=== PATIENT | male | born 1950 ===

== ENCOUNTER 2021-07-04 11:41 | Inpatient (IN) ==
[2021-07-04 13:18] LABS: ABS Lymphocytes 0.8 10^3/ul (1.0-4.8); ABS Monocytes 0.5 10^3/ul (0-0.8); ABS Neutrophils 5.5 10^3/ul (1.5-7.7); Eosinophil % 0.1 %; Hematocrit 41 % (42-52); Hemoglobin 14.1 g/dL (14.0-18.0); Lymphocyte % 11.1 %; Mean Corpuscular HGB Conc 35 g/dL (31-36); Mean Corpuscular Hemoglobin 29 pg (27-31); Mean Corpuscular Volume 84 fL (80-94); Mean Platelet Volume 9.4 fL (7.4-10.4); Platelet Count 206 10^3/uL (150-450); Red Blood Count 4.84 10^6 /uL (4.18-5.48); Red Cell Distribution Width 14 % (10-15); White Blood Count 6.8 10^3/uL (3.5-10.8)
[2021-07-04 13:38] LABS: Albumin 4.2 g/dL (3.2-5.2); Albumin/Globulin Ratio 1.5 (1-3); Calcium 9.4 mg/dL (8.6-10.3); Globulin 2.8 g/dL (2-4); Potassium 3.8 mmol/L (3.5-5.0); Total Bilirubin 0.4 mg/dL (0.2-1.0); eGFR CKD-EPI 51.4 (>60)
[2021-07-04] MEDS ORDERED: Lactated Ringers 1000 ml BAG 1,000 ML IV ONE (13:43)
[2021-07-04 13:48] LABS: Troponin I 0.01 ng/mL (<0.03)
[2021-07-04 13:48] LABS: Rapid COVID-19 Molecular Detected (Undetected)
[2021-07-04 16:41] LABS: Urine Appearance Clear; Urine Bilirubin Negative (Negative); Urine Blood Negative (Negative); Urine Color Yellow; Urine Glucose Negative (Negative); Urine Ketones Negative (Negative); Urine Nitrite Negative (Negative); Urine Protein 2+(100 mg/dL) (Negative); Urine Specific Gravity 1.016 (1.002-1.030); Urine Urobilinogen Negative (Negative)
[2021-07-04 16:46] LABS: Urine Bacteria Absent (Absent); Urine Red Blood Cell Trace(0-2/hpf) (Absent); Urine White Blood Cell Trace(0-5/hpf) (Absent)
[2021-07-04] MEDS ORDERED: Albuterol HFA INHALER 8 gm MDI INH PRN (17:43)
[2021-07-04] MEDS: Enoxaparin 40 MG/0.4 ML SYR SUBCUT SCH (17:51)
[2021-07-04] MEDS ORDERED: Remdesivir 100 mg Vial 200 MG in NS 0.9% 250 ml 210 ML IV ONE (17:59)
[2021-07-04] MEDS ORDERED: Dextrose 50% Syringe 50 ml 25 GM/50 ML SYRINGE IV PUSH PRN (18:01)
[2021-07-04] MEDS ORDERED: Senna TAB 8.6 mg TAB PO PRN (18:48)
[2021-07-04 19:38] LABS: Magnesium 1.8 mg/dL (1.9-2.7)
[2021-07-04] MEDS ORDERED: Lactated Ringers 1000 ml BAG 1,000 ML IV SCH (20:00)
[2021-07-04] MEDS: buPROPion SR 200 mg TAB.SR PO SCH (20:53)
[2021-07-04 21:26] LABS: INR 1.26 (0.86-1.15)
[2021-07-04 22:00] LABS: TSH Ultra Thyroid Stim Horm 1.42 mcIU/mL (0.34-5.60)
[2021-07-05 05:28] LABS: Hematocrit 37 % (42-52); Hemoglobin 12.7 g/dL (14.0-18.0); Mean Corpuscular HGB Conc 35 g/dL (31-36); Mean Corpuscular Hemoglobin 29 pg (27-31); Mean Corpuscular Volume 84 fL (80-94); Mean Platelet Volume 9.4 fL (7.4-10.4); Platelet Count 164 10^3/uL (150-450); Red Blood Count 4.35 10^6 /uL (4.18-5.48); Red Cell Distribution Width 14 % (10-15); White Blood Count 4.8 10^3/uL (3.5-10.8)
[2021-07-05 05:35] LABS: INR 1.25 (0.86-1.15)
[2021-07-05 05:46] LABS: Albumin 3.8 g/dL (3.2-5.2); Albumin/Globulin Ratio 1.5 (1-3); Calcium 8.5 mg/dL (8.6-10.3); Globulin 2.5 g/dL (2-4); Potassium 3.7 mmol/L (3.5-5.0); Total Bilirubin 0.4 mg/dL (0.2-1.0); Total Protein 6.3 g/dL (6.4-8.9)
[2021-07-05 07:51] LABS: Magnesium 1.7 mg/dL (1.9-2.7)
[2021-07-05] MEDS: Mometasone/Formoter 200/5 MDI INH SCH (08:18)
[2021-07-05] MEDS: Polyethylene Glycol 3350 17 GM PACKET PO PRN ×2 (08:39→13:24)
[2021-07-05] MEDS: Aspirin EC 81 mg TAB.EC (enteric coated) PO SCH (08:40)
[2021-07-05] MEDS: buPROPion SR 200 mg TAB.SR PO SCH ×2 (08:40→22:11)
[2021-07-05] MEDS ORDERED: Magnesium Sulf 4 GM/100 ML IV 4,000 MG/100 ML BAG IVPB ONE (16:28)
[2021-07-05] MEDS: Enoxaparin 40 MG/0.4 ML SYR SUBCUT SCH (16:54)
[2021-07-05] MEDS: Remdesivir 100 mg Vial 100 MG in NS 0.9% 250 ml 230 ML IV SCH (21:56)
[2021-07-06 07:00] LABS: Hematocrit 37 % (42-52); Hemoglobin 12.9 g/dL (14.0-18.0); Mean Corpuscular HGB Conc 35 g/dL (31-36); Mean Corpuscular Hemoglobin 30 pg (27-31); Mean Corpuscular Volume 84 fL (80-94); Mean Platelet Volume 9.5 fL (7.4-10.4); Platelet Count 180 10^3/uL (150-450); Red Blood Count 4.38 10^6 /uL (4.18-5.48); Red Cell Distribution Width 14 % (10-15); White Blood Count 3.4 10^3/uL (3.5-10.8)
[2021-07-06 07:17] LABS: Albumin 3.5 g/dL (3.2-5.2); Albumin/Globulin Ratio 1.4 (1-3); Calcium 8.5 mg/dL (8.6-10.3); Globulin 2.5 g/dL (2-4); Magnesium 2.5 mg/dL (1.9-2.7); Potassium 4.4 mmol/L (3.5-5.0); Total Bilirubin 0.3 mg/dL (0.2-1.0); eGFR CKD-EPI 67.1 (>60)
[2021-07-06 07:19] LABS: INR 1.24 (0.86-1.15)
[2021-07-06] MEDS: Mometasone/Formoter 200/5 MDI INH SCH (08:25)
[2021-07-06] MEDS: buPROPion SR 200 mg TAB.SR PO SCH ×2 (08:53→20:47)
[2021-07-06] MEDS: Aspirin EC 81 mg TAB.EC (enteric coated) PO SCH (08:53)
[2021-07-06] MEDS: Polyethylene Glycol 3350 17 GM PACKET PO PRN (12:43)
[2021-07-06] MEDS: Enoxaparin 40 MG/0.4 ML SYR SUBCUT SCH (17:41)
[2021-07-06] MEDS: Remdesivir 100 mg Vial 100 MG in NS 0.9% 250 ml 230 ML IV SCH (20:23)
[2021-07-06] MEDS: Insulin GLARGINE 100 un/ml 10 ml VIAL SUBCUT SCH (20:49)
[2021-07-07 06:49] LABS: INR 1.2 (0.86-1.15)
[2021-07-07 06:55] LABS: ABS Lymphocytes 1.2 10^3/ul (1.0-4.8); ABS Monocytes 0.5 10^3/ul (0-0.8); ABS Neutrophils 4.6 10^3/ul (1.5-7.7); Eosinophil % 0.5 %; Hematocrit 37 % (42-52); Hemoglobin 13.1 g/dL (14.0-18.0); Lymphocyte % 18.3 %; Mean Corpuscular HGB Conc 35 g/dL (31-36); Mean Corpuscular Hemoglobin 30 pg (27-31); Mean Corpuscular Volume 85 fL (80-94); Mean Platelet Volume 9.3 fL (7.4-10.4); Platelet Count 194 10^3/uL (150-450); Red Blood Count 4.39 10^6 /uL (4.18-5.48); Red Cell Distribution Width 13 % (10-15); White Blood Count 6.4 10^3/uL (3.5-10.8)
[2021-07-07 07:00] LABS: Albumin 3.5 g/dL (3.2-5.2); Albumin/Globulin Ratio 1.4 (1-3); Calcium 8.7 mg/dL (8.6-10.3); Globulin 2.5 g/dL (2-4); Total Bilirubin 0.3 mg/dL (0.2-1.0); eGFR CKD-EPI 72.2 (>60)
[2021-07-07] MEDS: Mometasone/Formoter 200/5 MDI INH SCH (07:50)
[2021-07-07] MEDS: Aspirin EC 81 mg TAB.EC (enteric coated) PO SCH (08:24)
[2021-07-07] MEDS: buPROPion SR 200 mg TAB.SR PO SCH ×2 (08:24→19:56)
[2021-07-07] MEDS ORDERED: Remdesivir 100 mg Vial 100 MG in NS 0.9% 250 ml 230 ML IV ONE (17:00)
[2021-07-07] MEDS: Enoxaparin 40 MG/0.4 ML SYR SUBCUT SCH (17:12)
[2021-07-07] MEDS: Insulin GLARGINE 100 un/ml 10 ml VIAL SUBCUT SCH (19:58)
[2021-07-08 06:36] LABS: Albumin 3.4 g/dL (3.2-5.2); Albumin/Globulin Ratio 1.4 (1-3); Calcium 8.5 mg/dL (8.6-10.3); Globulin 2.4 g/dL (2-4); Potassium 3.9 mmol/L (3.5-5.0); Total Bilirubin 0.3 mg/dL (0.2-1.0); Total Protein 5.8 g/dL (6.4-8.9); eGFR CKD-EPI 67.1 (>60)
[2021-07-08 06:37] VITALS: BP 154/79
[2021-07-08 06:37] LABS: INR 1.19 (0.86-1.15)
[2021-07-08] MEDS: Mometasone/Formoter 200/5 MDI INH SCH (07:41)
[2021-07-08] MEDS: Aspirin EC 81 mg TAB.EC (enteric coated) PO SCH (08:41)
[2021-07-08] MEDS: buPROPion SR 200 mg TAB.SR PO SCH (08:41)
[2021-07-08] MEDS ORDERED: Remdesivir 100 mg Vial 100 MG in NS 0.9% 100 ml BAG 100 ML IV ONE (13:00)
== END 2021-07-08 16:00 | disposition home or self-care (01) | DRG 178 ==
LOC: ED 11:41 → INTOOBSV 15:41 → EDHOLD 15:41 → MED 19:17
PROVIDERS: ADMIT Internal Medicine; ATTEND Internal Medicine